=== PATIENT | male | born 1985 | race Caucasian/White ===

== ENCOUNTER 2016-12-15 11:02 | Emergency (ER) | payer BC ==
[~2016-12-15] VITALS: Ht 195.6 cm; Wt 86.2 kg
[2016-12-15 11:08] VITALS: BP 130/79
== END 2016-12-15 11:24 | disposition home or self-care (01) ==
LOC: ER 11:10
DX: K12.30 Oral mucositis (ulcerative), unspecified (principal); K11.6 Mucocele of salivary gland
CPT/HCPCS: 99281; A4606; Z7502; Z7610